=== PATIENT | male | born 1985 | race African-American/Black ===

== ENCOUNTER 2022-10-31 14:02 | Emergency (ER) | payer SELFPAY ==
[2022-10-31] MEDS ORDERED: TETANUS, DIPHTHERIA TOX,ADULT (TDVAX) 0.5 ML VIAL IM ONE (14:06)
[2022-10-31] MEDS ORDERED: CEFAZOLIN 2 GM VIAL ONE (14:06)
[2022-10-31] MEDS ORDERED: Boostrix 0.5 ML (Tdap) VIAL (>/=7 yrs of age) ONE (14:07)
[2022-10-31] MEDS ORDERED: fentaNYL 50 mcg/mL 1 mL Vial ONE (14:10)
[2022-10-31] MEDS ORDERED: Morphine 4 MG/ML VIAL ONE ×3 (14:35→16:08)
[2022-10-31 15:16] LABS: #Monocytes 0.9 thou/uL (0.11-0.59); #Neutrophils 9.3 thou/uL (1.40-6.50); %Basophils 0.3 % (0.0-1.0); %Eosinophils 0.1 % (0.0-10.0); %Lymphocytes 6.9 % (21.0-51.0); %Monocytes 8.5 % (0.0-10.0); %Neutrophils 83.8 % (42.0-75.0); Hematocrit 42.9 % (42.0-52.0); Hemoglobin 14.7 g/dL (14.0-18.0); Mean Corpuscular HGB CONC 34.3 g/dL (32.0-36.0); Mean Corpuscular Hemoglobin 30.8 pg (27.0-31.0); Mean Corpuscular Volume 89.9 fl (78.0-98.0); Mean Platelet Volume 10.3 fL (7.4-10.4); Platelet Count 166 10x3/uL (130-400); Red Blood Cell (RBC) Count 4.77 mill/uL (4.70-6.10); White Blood Cell (WBC) Count 11.1 10x3/uL (4.8-10.8)
[2022-10-31 15:25] LABS: Albumin 4.3 g/dL (3.5-5.0)
[2022-10-31 15:26] LABS: Chloride 105 mmol/L (98-107); Potassium 3.4 mmol/L (3.5-5.1); Sodium 136 mmol/L (136-145)
[2022-10-31 15:27] LABS: Calcium 9.2 mg/dL (7.8-10.44); Glucose 121 mg/dL (70-105)
[2022-10-31 15:28] LABS: Globulin 2.6 g/dL (2.4-3.5); Protein, Total 6.9 g/dL (6.0-8.3)
[2022-10-31 15:29] LABS: Anion Gap 13 mmol/L (10-20); Bilirubin, Total 0.7 mg/dL (0.2-1.2); Carbon Dioxide 21 mmol/L (22-29)
[2022-10-31 15:30] LABS: Alkaline Phosphatase 48 U/L (40-110)
[2022-10-31 15:31] LABS: Calc. Creatinine Clearance 0 mL/min (70-130); Estimated GFR 96
[2022-10-31 15:32] LABS: BUN (Urea Nitrogen) 8 mg/dL (8.9-20.6)
[2022-10-31 15:33] LABS: ALT (SGPT) 24 U/L (8-55); AST (SGOT) 19 U/L (5-34); Prothrombin Time 13.6 sec (12.0-14.7)
[2022-10-31 15:34] LABS: PTT 21.4 sec (22.9-36.1)
== END 2022-10-31 17:36 | disposition short-term general hospital (02) ==
LOC: ERS 14:02
DX: S42.201B Unspecified fracture of upper end of right humerus, initial encounter for open fracture (principal); S41.031A Puncture wound without foreign body of right shoulder, initial encounter; W33.01XA Accidental discharge of shotgun, initial encounter; Z23 Encounter for immunization
CPT/HCPCS: 36415; 71045; 80053; 83605; 85025; 85610; 85730; 86850; 86900; 86901; 90471; 90714; 90715; 93005; 96365; 96375; G0390; J2270; J3010